=== PATIENT | female | born 1995 ===

== ENCOUNTER 2023-06-29 17:50 | Emergency (ER) | payer MEDICAID ==
[2023-06-29] MEDS ORDERED: Sodium Chloride 0.9% 10 ML Syringe FLUSH PRN (18:10)
[2023-06-29] MEDS ORDERED: Sodium Chloride 0.9% 2.5 ML Syringe FLUSH PRN (18:10)
[2023-06-29] MEDS ORDERED: Ketorolac 30 MG/ML SDV IVPUSH STA (18:11)
[2023-06-29] MEDS ORDERED: Acetaminophen 500 MG Tab PO STA (18:11)
[2023-06-29] MEDS ORDERED: cefTRIAXone 1 GM in Sodium Chloride 0.9% 50 ML IV STA (18:14)
[2023-06-29] MEDS ORDERED: Sodium Chloride 0.9% 1,000 ML IV STA ×2 (18:14)
[2023-06-29 18:16] LABS: APPEARANCE,URINE CLOUDY; BILIRUBIN,URINE NEGATIVE (NEGATIVE); COLOR,URINE YELLOW; GLUCOSE,URINE NEGATIVE (NEGATIVE); KETONES,URINE NEGATIVE (NEGATIVE); LEUKOCYTE ESTERASE,URINE SMALL (NEGATIVE); NITRITE,URINE POSITIVE (NEGATIVE); OCCULT BLOOD,URINE TRACE-INTACT (NEGATIVE); PROTEIN,URINE 30 mg/dL (NEGATIVE)
[2023-06-29 18:45] LABS: BASOPHILS PERCENT AUTO 0.1 % (0.0-1.5); EOSINOPHILS PERCENT AUTO 0.1 % (0.0-7.0); HEMATOCRIT 35.5 % (36.0-46.0); HEMOGLOBIN 11.5 g/dL (12.0-16.0); LYMPHOCYTES ABSOLUTE AUTO 1.5 K/uL (0.6-2.4); MEAN CORPUSCULAR HEMOGLOBIN 30.1 pg (27.0-32.0); MEAN CORPUSCULAR HGB CONC 32.4 g/dL (31.0-37.0); MEAN CORPUSCULAR VOLUME 92.9 fL (80.0-98.0); MONOCYTES ABSOLUTE AUTO 1.3 K/uL (0.0-0.8); MONOCYTES PERCENT AUTO 8.4 % (0.0-15.0); NEUTROPHILS ABSOLUTE AUTO 12.6 K/uL (1.4-5.7); NEUTROPHILS PERCENT AUTO 81.4 % (48.0-80.0); NRBC ABSOLUTE 0 K/uL; PLATELET COUNT,PLT 374 K/uL (150-400); RED BLOOD CELL COUNT 3.82 M/uL (4.30-5.90); WHITE BLOOD CELL COUNT,WBC 15.45 K/uL (4.0-11.0)
[2023-06-29 19:05] LABS: A/G RATIO 0.5 (0.9-1.6); ALBUMIN 2.5 g/dL (3.4-5.0); BILIRUBIN TOTAL 0.3 mg/dL (0.2-1.0); CALCIUM 8.2 mg/dL (8.5-10.1); CARBON DIOXIDE,CO2 28.5 mmol/L (21.0-32.0); CREATININE 0.9 mg/dL (0.6-1.0); EST CRCL DRUG DOSING (CG) 76.3 mL/min; POTASSIUM,K 2.9 mmol/L (3.5-5.1); PROTEIN TOTAL,TP 7.8 g/dL (6.4-8.2)
[2023-06-29 19:08] LABS: BACTERIA,URINE MANY (NEGATIVE); EPITHELIAL CELLS,URINE RARE (NONE-FEW)
[2023-06-29] MEDS ORDERED: Potassium Chloride 20 MEQ Tab.ER PO STA (19:11)
[2023-06-29] MEDS ORDERED: Potassium Chloride 100 ML IV STA (19:11)
[2023-06-29] MEDS ORDERED: Potassium Chloride 20 MEQ in Premix Bag 1 BAG IV ONE (19:20)
[2023-06-29] MEDS ORDERED: Iopamidol 755 MG/ML 500 ML Multipack Bottle IVPUSH ONE (19:28)
[2023-06-29] MEDS ORDERED: Sodium Chloride 0.9% 250 ML IV SCH (19:30)
[2023-06-29] MEDS ORDERED: Potassium Chloride Riders 20 MEQ in Premix Bag 1 BAG IV SCH (19:30)
[2023-06-29] MEDS ORDERED: Potassium Chloride 20 MEQ in Premix Bag 1 BAG IV SCH (20:00)
== END 2023-06-29 20:05 | disposition left against medical advice (07) ==
LOC: MW.ED 17:50
DX: N12 Tubulo-interstitial nephritis, not specified as acute or chronic (principal); E87.6 Hypokalemia
CPT/HCPCS: 36415; 74177; 80053; 81001; 81025; 83605; 83690; 85025; 87040; 87086; 96365; 96375; 99284; A9270; J0696; J1885; J3490; J7030; J7050; Q9967; 87088; 87186

== ENCOUNTER 2024-04-20 02:37 | Emergency (ER) | payer OTHER ==
[2024-04-20] MEDS: Sodium Chloride 0.9% 1,000 ML IV ONE (03:02)
[2024-04-20] MEDS: Famotidine 20 MG/2 ML SDV IVPUSH ONE (03:02)
[2024-04-20] MEDS: Ondansetron 4 MG/2 ML SDV IVPUSH ONE (03:02)
[2024-04-20] MEDS: Sodium Chloride 0.9% 10 ML Syringe FLUSH PRN (03:02)
[2024-04-20] MEDS: Sodium Chloride 0.9% 2.5 ML Syringe FLUSH PRN (03:02)
[2024-04-20 03:03] LABS: BASOPHILS ABSOLUTE AUTO 0.03 K/uL (0.00-0.20); BASOPHILS PERCENT AUTO 0.4 % (0.0-1.0); HEMATOCRIT 39.9 % (37.0-47.0); HEMOGLOBIN 13.6 g/dL (12.0-16.0); IMMATURE GRAN ABSOLUTE AUTO 0.02 K/uL (0.00-0.05); IMMATURE GRAN PERCENT AUTO 0.2 % (0.0-0.4); LYMPHOCYTES ABSOLUTE AUTO 2.01 K/uL (1.00-4.80); LYMPHOCYTES PERCENT AUTO 24.8 % (24.0-44.0); MEAN CORPUSCULAR HEMOGLOBIN 30.5 pg (28.0-32.0); MEAN CORPUSCULAR HGB CONC 34.1 g/dL (32.0-36.0); MEAN CORPUSCULAR VOLUME 89.5 fL (83.0-99.0); MONOCYTES ABSOLUTE AUTO 0.64 K/uL (0.00-0.80); MONOCYTES PERCENT AUTO 7.9 % (0.0-8.0); NEUTROPHILS ABSOLUTE AUTO 5.39 K/uL (1.80-7.70); NEUTROPHILS PERCENT AUTO 66.7 % (41.0-71.0); PLATELET COUNT,PLT 363 K/uL (150-400); RED BLOOD CELL COUNT 4.46 M/uL (4.10-5.30); WHITE BLOOD CELL COUNT,WBC 8.09 K/uL (3.9-11.3)
[2024-04-20 03:21] LABS: A/G RATIO 1.1 (0.9-1.6); ALANINE AMINOTRANSFERASE,ALT 22 IU/L (14-63); ALBUMIN 4.5 g/dL (3.4-5.0); ALKALINE PHOSPHATASE 71 U/L (46-116); ASPARTATE AMNIOTRANSFERASE,AST 21 IU/L (15-37); BILIRUBIN TOTAL 0.5 mg/dL (0.2-1.0); BLOOD UREA NITROGEN,BUN 15 mg/dL (7.0-18.0); CALCIUM 9.4 mg/dL (8.5-10.1); CARBON DIOXIDE,CO2 25.4 mmol/L (21.0-32.0); CHLORIDE,CL 97 mmol/L (98-107); CREATININE 0.9 mg/dL (0.6-1.0); EST CRCL DRUG DOSING (CG) 83.69 mL/min; GLUCOSE RANDOM 101 mg/dL (74-106); POTASSIUM,K 3.3 mmol/L (3.5-5.1); PROTEIN TOTAL,TP 8.7 g/dL (6.4-8.2); SODIUM,NA 136 mmol/L (136-145)
[2024-04-20] MEDS: Buprenorphine/Naloxone 8-2 MG Tab.SL SL ONE (03:21)
[2024-04-20 03:22] LABS: ESTIMATED GFR 88 mL/min (>60)
== END 2024-04-20 04:42 ==
LOC: MW.ED 02:37
DX: R07.9 Chest pain, unspecified (principal); F11.23 Opioid dependence with withdrawal; Z91.030 Bee allergy status; Z88.8 Allergy status to other drugs, medicaments and biological substances
CPT/HCPCS: 36415; 71045; 80053; 84484; 85025; 93005; 96361; 96374; 96375; 99285; J0574; J2405; J3490; J7030